=== PATIENT | female | born 1990 | race Caucasian/White ===

== ENCOUNTER 2018-09-27 16:41 | Outpatient (CLI) | payer MEDICAID ==
[~2018-09-27] VITALS: Ht 165.1 cm; Wt 79.5 kg
== END 2018-09-27 17:24 | disposition home or self-care (01) ==
LOC: LDOP 16:41
PROVIDERS: ATTEND Obstetrics & Gynecology
DX: O42.92 Full-term premature rupture of membranes, unspecified as to length of time between rupture and onset of labor (principal); Z3A.49 Greater than 42 weeks gestation of pregnancy
CPT/HCPCS: 59025; 89060; 99211; G0463; Q0114

== ENCOUNTER 2018-10-05 09:43 | Outpatient (CLI) | payer MEDICAID ==
[~2018-10-05] VITALS: Ht 165.1 cm; Wt 78.6 kg
[2018-10-05 09:48] VITALS: BP 105/71
[2018-10-05] MEDS ORDERED: CALC300T4 PO (10:34)
[2018-10-05] MEDS ORDERED: DIPH25CA61 PO (10:34)
[2018-10-05] MEDS ORDERED: PREN1TAB60 PO (10:34)
== END 2018-10-05 13:16 | disposition home or self-care (01) ==
LOC: LDOP 09:43
PROVIDERS: ATTEND Obstetrics & Gynecology
DX: O26.893 Other specified pregnancy related conditions, third trimester (principal); R10.9 Unspecified abdominal pain; Z3A.38 38 weeks gestation of pregnancy
CPT/HCPCS: 59025; 99211; G0463

== ENCOUNTER 2018-10-06 10:01 | Inpatient (IN) | payer MEDICAID ==
[~2018-10-06] VITALS: Ht 165.1 cm; Wt 79.0 kg
[~2018-10-06 10:01] MED LIST: CALC300T4 PO; DIPH25CA61 PO; PREN1TAB60 PO
[2018-10-06] MEDS ORDERED: OXYTOCIN 30U/ 0.9% NaCL 500ML 500 ML IV ONE (10:14)
[2018-10-06] MEDS ORDERED: LACTATED RINGERS 1,000 ML IV SCH (10:14)
[2018-10-06] MEDS ORDERED: D5%-LACTATED RINGERS 1,000 ML IV SCH (10:14)
[2018-10-06] MEDS ORDERED: METOCLOPRAMIDE 5 MG/ML, 2ML IVPush PRN (10:30)
[2018-10-06] MEDS ORDERED: FENTANYL PF 100 MCG/2ML IV PRN (10:30)
[2018-10-06] MEDS ORDERED: FENTANYL PF 100 MCG/2ML IVPush PRN (10:30)
[2018-10-06] MEDS ORDERED: SODIUM CITRATE/CITRIC ACID 30 ML UDC PO PRN (10:30)
[2018-10-06] MEDS ORDERED: ONDANSETRON 2MG/ML, 2ML IVPush PRN (10:30)
[2018-10-06] MEDS ORDERED: TERBUTALINE 1 MG/ML, 1ML IVPush PRN (10:30)
[2018-10-06] MEDS ORDERED: CLINDAMYCIN PMX 900MG/50ML 50 ML ONE (11:13)
[2018-10-06] MEDS: CLINDAMYCIN PMX 900MG/50ML 50 ML IVPB SCH ×2 (11:19→19:30)
[2018-10-06 11:21] LABS: BASOPHILS # (AUTO) 0.02 x10^3/uL (0-0.1); BASOPHILS % (AUTO) 0 % (0-1); EOSINOPHILS # (AUTO) 0.13 x10^3/uL (0-0.4); EOSINOPHILS % (AUTO) 2 % (1-7); LYMPHOCYTES # (AUTO) 1.27 x10^3/uL (1-3.4); LYMPHOCYTES % (AUTO) 17 % (22-44); MD NO; MEAN CORPUSCULAR HEMOGLOBIN 29.8 pg (27.0-34.8); MEAN CORPUSCULAR HGB CONC 33.6 g/dL (32.4-35.8); MEAN CORPUSCULAR VOLUME 88.7 fL (80-100); MEAN PLATELET VOLUME 9.7 fL (7.4-10.4); MONOCYTES # (AUTO) 0.38 x10^3/uL (0.2-0.8); MONOCYTES % (AUTO) 5 % (2-9); NEUTROPHILS # (AUTO) 5.52 x10^3/uL (1.8-6.8); NEUTROPHILS % (AUTO) 76 % (42-75); PLATELET COUNT 242 x10^3/uL (130-400); RED BLOOD COUNT 4.46 x10^6/uL (3.82-5.3); RED CELL DISTRIBUTION WIDTH 12.7 % (9.6-15.2)
[2018-10-06] MEDS ORDERED: LIDOCAINE 1%, 20ML ONE (11:21)
[2018-10-06] MEDS ORDERED: NEWBORN KIT ONE ×2 (11:21→11:24)
[2018-10-06] MEDS ORDERED: MISOPROSTOL 200 MCG TABLET ONE (11:22)
[2018-10-06] MEDS ORDERED: FENTANYL PF 100 MCG/2ML ONE (11:22)
[2018-10-06] MEDS ORDERED: OXYTOCIN 30U/ 0.9% NaCL 500ML 500 ML ONE (11:22)
[2018-10-06] MEDS: LACTATED RINGERS 1,000 ML IV SCH ×4 (12:16→20:52)
[2018-10-06] MEDS ORDERED: FENTANYL/BUPIV./NS/PF 250 ML EPIDCONT SCH ×2 (12:16→12:52)
[2018-10-06] MEDS ORDERED: BUPIVACAINE 0.25% ONE (12:23)
[2018-10-06] MEDS ORDERED: LACTATED RINGERS 1,000 ML IVBOLUS PRN ×2 (12:30→13:00)
[2018-10-06] MEDS ORDERED: NALOXONE 0.4 MG/ML, 1ML IVPush PRN (13:00)
[2018-10-06] MEDS ORDERED: FENTANYL PF 500 MCG, BUPIVACAINE/PF 0.5%, 10ML 62.5 ML in SODIUM CHLORIDE 0.9% 177.5 ML EPIDCONT SCH (13:00)
[2018-10-06] MEDS ORDERED: EPHEDRINE 50 MG/ML, 1ML IVPush PRN (13:00)
[2018-10-06] MEDS ORDERED: MISOPROSTOL 200 MCG TABLET PR PRN (14:00)
[2018-10-06] MEDS ORDERED: ACETAMINOPHEN 325 MG TABLET PO PRN (14:00)
[2018-10-06] MEDS ORDERED: ONDANSETRON 2MG/ML, 2ML IV PRN (14:00)
[2018-10-06] MEDS ORDERED: IBUPROFEN 600 MG TABLET ONE (14:18)
[2018-10-06] MEDS: IBUPROFEN 600 MG TABLET PO PRN ×2 (14:21→20:01)
[2018-10-06] MEDS: OXYTOCIN 30U/ 0.9% NaCL 500ML 500 ML IV SCH ×2 (14:22→23:54)
[2018-10-06 16:40] VITALS: BP 112/63
[2018-10-06] MEDS: OXYcodone/APAP 5/325MG TABLET PO PRN ×2 (16:54→21:03)
[2018-10-06] MEDS: OXYcodone IR 5MG TABLET PO PRN (18:30)
[2018-10-06] MEDS: DOCUSATE 100 MG CAPSULE PO PRN (20:01)
[2018-10-06] MEDS ORDERED: PRENATAL VIT/IRON/FA 1 EACH TABLET ONE (20:06)
[2018-10-06] MEDS: PRENATAL VIT/IRON/FA 1 EACH TABLET PO SCH (20:19)
[2018-10-06 21:00] VITALS: BP 104/67
[2018-10-06 22:00] LABS: BASOPHILS # (AUTO) 0.04 x10^3/uL (0-0.1); BASOPHILS % (AUTO) 0 % (0-1); EOSINOPHILS # (AUTO) 0.09 x10^3/uL (0-0.4); EOSINOPHILS % (AUTO) 1 % (1-7); LYMPHOCYTES # (AUTO) 1.52 x10^3/uL (1-3.4); LYMPHOCYTES % (AUTO) 13 % (22-44); MD NO; MEAN CORPUSCULAR HEMOGLOBIN 30.7 pg (27.0-34.8); MEAN CORPUSCULAR VOLUME 90.4 fL (80-100); MONOCYTES # (AUTO) 0.46 x10^3/uL (0.2-0.8); MONOCYTES % (AUTO) 4 % (2-9); NEUTROPHILS # (AUTO) 9.34 x10^3/uL (1.8-6.8); NEUTROPHILS % (AUTO) 82 % (42-75); PLATELET COUNT 200 x10^3/uL (130-400); RED BLOOD COUNT 4.33 x10^6/uL (3.82-5.3); RED CELL DISTRIBUTION WIDTH 12.2 % (9.6-15.2)
[2018-10-07] VITALS: BP 114/66
[2018-10-07] MEDS: OXYcodone IR 5MG TABLET PO PRN ×6 (00:57→22:33)
[2018-10-07 03:45] VITALS: BP 100/68
[2018-10-07] MEDS: IBUPROFEN 600 MG TABLET PO PRN ×4 (03:52→22:33)
[2018-10-07] MEDS: LACTATED RINGERS 1,000 ML IV SCH ×3 (04:16→20:16)
[2018-10-07 08:10] VITALS: BP 111/71
[2018-10-07] MEDS: OXYTOCIN 30U/ 0.9% NaCL 500ML 500 ML IV SCH ×2 (09:54→19:54)
[2018-10-07] MEDS: DOCUSATE 100 MG CAPSULE PO PRN ×2 (09:55→22:33)
[2018-10-07] MEDS: PRENATAL VIT/IRON/FA 1 EACH TABLET PO SCH (09:55)
[2018-10-07 12:00] VITALS: BP 109/60
[2018-10-07 19:50] VITALS: BP 105/70
[2018-10-08] MEDS: OXYcodone IR 5MG TABLET PO PRN ×3 (03:09→12:27)
[2018-10-08] MEDS: LACTATED RINGERS 1,000 ML IV SCH ×2 (04:16→12:16)
[2018-10-08] MEDS: OXYTOCIN 30U/ 0.9% NaCL 500ML 500 ML IV SCH (05:54)
[2018-10-08] MEDS: PRENATAL VIT/IRON/FA 1 EACH TABLET PO SCH (08:32)
[2018-10-08] MEDS: IBUPROFEN 600 MG TABLET PO PRN (08:32)
[2018-10-08] MEDS: DOCUSATE 100 MG CAPSULE PO PRN (08:32)
[2018-10-08 08:40] VITALS: BP 105/69
[2018-10-08] MEDS ORDERED: OXYC-302 PO (12:08)
[2018-10-08] MEDS ORDERED: IBUP-1222 PO (12:08)
== END 2018-10-08 12:56 | disposition home or self-care (01) | DRG 807 ==
LOC: LDOP 10:01 → LDIP 10:15 → 2NW 16:28
PROVIDERS: ADMIT Obstetrics & Gynecology; ATTEND Obstetrics & Gynecology
PROC: 3E0R3BZ Introduction of Anesthetic Agent into Spinal Canal, Percutaneous Approach (ICD-10-PCS; principal; 2018-10-06)
PROC: 10E0XZZ Delivery of Products of Conception, External Approach (ICD-10-PCS; 2018-10-06)
PROC: 00HU33Z Insertion of Infusion Device into Spinal Canal, Percutaneous Approach (ICD-10-PCS; 2018-10-06)
DX: O80 Encounter for full-term uncomplicated delivery (principal); Z37.0 Single live birth; Z3A.38 38 weeks gestation of pregnancy; Z88.0 Allergy status to penicillin
CPT/HCPCS: 36415; 85025; 86850; 86900; G0378; J3010; J3490; J2590; J7050; J7120